=== PATIENT | male | born 1970 | race Caucasian/White ===

== ENCOUNTER 2020-06-04 11:18 | Emergency (ER) | payer OTHER ==
[~2020-06-04] VITALS: Ht 162.6 cm; Wt 78.0 kg
[~2020-06-04 11:18] MED LIST: OMEP40CA PO
[2020-06-04] MEDS ORDERED: IBUPROFEN 600MG TABLET PO ONE (12:00)
[2020-06-04 12:48] VITALS: BP 147/89
== END 2020-06-04 12:50 | disposition home or self-care (01) ==
LOC: ER 11:18
DX: L02.416 Cutaneous abscess of left lower limb (principal); E78.00 Pure hypercholesterolemia, unspecified; Z90.49 Acquired absence of other specified parts of digestive tract
CPT/HCPCS: 10060; 99283